=== PATIENT | male | born 1955 | race Caucasian/White ===

== ENCOUNTER 2017-10-12 15:31 | Inpatient (IN) | payer OTHER ==
[2017-10-12] MEDS ORDERED: ASPIRIN 81 MG CHEWABLE TAB PO ONE (15:36)
--- NOTE | 2017-10-12 15:40 | CPEKG ---
Heart Rate: 89 RR Interval: 674 P-R Interval: 188 QRSD Interval: 84 QT Interval: 368 QTC Interval: 448 P Marion: 53 QRS Marion: -2 T Wave Marion: 1 EKG Severity - OTHERWISE NORMAL ECG - EKG Impression: SINUS RHYTHM EKG Impression: MINIMAL ST DEPRESSION, INFERIOR LEADS Electronically Signed By: Lorenzo Benedict 12-Oct-2017 15:51:28
--- NOTE | 2017-10-12 15:42 | EDPHY ---
H & P Time Seen by Provider: 10/12/17 15:42 HPI/ROS: CHIEF COMPLAINT: Chest pain HISTORY OF PRESENT ILLNESS: Patient developed chest pain while he was skiing riding the chair lift at [employer] this morning at 9:30 a.m.. There was left-sided and associated with a little bit of shortness of breath and radiated to his back. Moderate but came and went over the course of the day when he presents to the emergency department is still there. Not particularly exertional but definitely not pleuritic. No recent fall or trauma or cough or hemoptysis. REVIEW OF SYSTEMS: Eye: no change in vision, head epi scleritis 1 week ago but eyes are feeling much better now ENT: no sore throat Cardiac: HPI Pulmonary: no cough or SOB Abdomen: no vomiting, diarrhea, abdominal pain Musculoskeletal: no back pain Skin: no rash Neuro: no headache Constitutional: no fever : no urinary symptoms A comprehensive 10 point review of systems is otherwise negative aside from elements mentioned in the history of present illness. PAST MEDICAL HISTORY: Shoulder surgery, knee surgery, neuropathy Social history: No tobacco smoking. No recent travel except to [place] over [place] but that was by air General Appearance: Alert and conversant, cooperative. Eyes: No scleral icterus. ENT, Mouth: Normal mucous membranes. Respiratory: Normal respiratory effort, breath sounds equal, lungs are clear to auscultation. Cardiovascular: Regular rate and rhythm. Gastrointestinal: Abdomen is soft and non tender. Neurological: Alert, face symmetric, normal motor and sensory in extremities. Skin: Warm and dry, no rashes. Musculoskeletal: No peripheral edema. No calf tenderness. Psychiatric: Not agitated. Emergency Department course/MDM: Cardiac alert called, Dr. Sukumar Prescott is in the patient's room at 3:45 p.m.. Oral aspirin 325 mg. 12-lead EKG interpreted by me; official reading is in trace master. My interpretation is sinus rhythm with inferior ST depression and at least [address] elevation in V2 and possibly V3. Direct cardiac catheterization lab for further evaluation. Critical care time spent by me, Dr. Benedict, exclusively with the care of this patient was 15 minutes, exclusive of PA or ACREAGE REPORTER time and exclusive of separate procedures. The organ system at risk was cardiovascular and I ordered EKG, aspirin, cardiology consultation and cardiac alert to stabilize the patient and prevent worsening of the patient's condition. Smoking Status: Never smoked Constitutional: Initial Vital Signs Temperature (C) 36.6 C 10/12/17 15:37 Heart Rate 93 10/12/17 15:37 Respiratory Rate 18 10/12/17 15:37 Blood Pressure 183/114 H 10/12/17 15:37 O2 Sat (%) 97 10/12/17 15:37 O2 Delivery Mode Room Air Allergies/Adverse Reactions: No Known Allergies Allergy (Unverified 10/12/17 15:39) Home Medications: Medication Instructions Recorded Famotidine 10/12/17 Ibuprofen 10/12/17 LYRICA 10/12/17 Ranitidine HCl 10/12/17 Medical Decision Making - Diagnostics EKG Interpretation: 12-lead EKG interpreted by me; official reading is in trace master. My interpretation is sinus rhythm with anterior ST elevation and inferior ST depression, possible acute anterior myocardial infarction. Imaging Results: Imaging Impressions Chest X-Ray 10/12/17 15:53 Impression: Negative. Differential Diagnosis: Differential diagnosis considered for chest pain including but not limited to myocardial ischemia, aortic dissection, pericarditis, pulmonary embolus, chest wall pain, pleural inflammation and pulmonary infectious causes. - Data Points Laboratory Results: Laboratory Results 10/12/17 15:42 10/12/17 15:42 10/12/17 10/12/17 15:42 15:42 WBC 8.19 10^3/uL 10^3/uL (3.80-9.50) RBC 5.29 10^6/uL 10^6/uL (4.40-6.38) Hgb 17.9 g/dL H g/dL (13.7-17.5) Hct 47.9 % % (40.0-51.0) MCV 90.5 fL fL (81.5-99.8) MCH 33.8 pg pg (27.9-34.1) MCHC 37.4 g/dL H g/dL (32.4-36.7) RDW 11.9 % % (11.5-15.2) Plt Count 212 10^3/uL 10^3/uL (150-400) MPV 10.2 fL fL (8.7-11.7) Neut % (Auto) 86.2 % H % (39.3-74.2) Lymph % (Auto) 7.7 % L % (15.0-45.0) [place] % (Auto) 5.0 % % (4.5-13.0) Eos % (Auto) 0.0 % L % (0.6-7.6) Baso % (Auto) 0.4 % % (0.3-1.7) Nucleat RBC Rel Count 0.0 % % (0.0-0.2) Absolute Neuts (auto) 7.06 10^3/uL H 10^3/uL (1.70-6.50) Absolute Lymphs (auto) 0.63 10^3/uL L 10^3/uL (1.00-3.00) Absolute Monos (auto) 0.41 10^3/uL 10^3/uL (0.30-0.80) Absolute Eos (auto) 0.00 10^3/uL L 10^3/uL (0.03-0.40) Absolute Basos (auto) 0.03 10^3/uL 10^3/uL (0.02-0.10) Absolute Nucleated RBC 0.00 10^3/uL 10^3/uL (0-0.01) Immature Gran % 0.7 % % (0.0-1.1) Immature Gran # 0.06 10^3/uL 10^3/uL (0.00-0.10) Sodium 137 mEq/L mEq/L (135-145) Potassium 4.6 mEq/L mEq/L (3.5-5.2) Chloride 101 mEq/L mEq/L (97-110) Carbon Dioxide 23 mEq/l mEq/l (22-31) Anion Gap 13 mEq/L mEq/L (8-16) BUN 19 mg/dL mg/dL (7-23) Creatinine 0.8 mg/dL mg/dL (0.7-1.3) Estimated GFR > 60 Glucose 117 mg/dL H mg/dL (70-100) Calcium 9.6 mg/dL mg/dL (8.5-10.4) Troponin I 0.464 ng/mL H ng/mL (0.000-0.034) Medications Given: Discontinued Medications Aspirin (Aspirin) 324 mg PO EDNOW ONE Stop: 10/12/17 15:37 Last Admin: 10/12/17 15:36 Dose: 324 mg Prasugrel (Effient) 60 mg PO ONCE ONE Stop: 10/12/17 17:38 Last Admin: 10/12/17 18:30 Dose: Not Given Departure - Departure Disposition: To OP Cath/Surgery Clinical Impression: Acute coronary syndrome Condition: Fair
[2017-10-12] MEDS ORDERED: ASPIRIN 81 MG CHEWABLE TAB ONE ×2 (15:43→15:44)
[2017-10-12] MEDS ORDERED: LIDOCAINE 1% 300 MG/30 ML SDV ONE (15:49)
[2017-10-12] MEDS ORDERED: fentaNYL 100 MCG/2 ML INJ ONE ×2 (15:50→16:32)
[2017-10-12] MEDS ORDERED: MIDAZOLAM 2 MG/2 ML VIAL ONE ×2 (15:50→16:32)
[2017-10-12] MEDS ORDERED: IOPAMIDOL (ISOVUE-370) 150 ML BTL IV ONE ×2 (15:50→17:02)
[2017-10-12] MEDS ORDERED: HEPARIN 10,000 UNIT/10 ML MDV (1,000 UNIT/ML) ONE (16:06)
[2017-10-12] MEDS ORDERED: VERAPAMIL 5 MG/2 ML VIAL ONE (16:06)
[2017-10-12 16:13] LABS: PLATELET COUNT 212 10^3/uL (150-400)
[2017-10-12] MEDS ORDERED: NITROGLYCERIN 1,500 MCG/15 ML VIAL MISC ONE (16:38)
--- NOTE | 2017-10-12 16:45 | GHP ---
[f rep st] HISTORY AND PHYSICAL DATE OF ADMISSION: 10/12/2017 REASON FOR ADMISSION: Probable acute coronary syndrome. HISTORY: The patient is a 62-year-old male with no prior cardiac history. He went skiing today and, early in the course of the day, he developed substernal chest discomfort described as a dull ache with radiation to the left shoulder. There was no associated diaphoresis, nausea, or shortness of breath. The pain waxed and waned throughout the middle of the day. He took an hour off from skiing, but continued to have discomfort. Therefore, he decided to come back to [place] to be checked out. His pain continued off and on throughout the drive home. In the emergency room, his initial ECG demonstrated mild inferolateral ST- segment depression. There was minimal ST-segment elevation in lead V2 only. Initially, a cardiac alert was called. In the emergency room, he is still experiencing mild chest pressure. He is hypertensive and in normal sinus rhythm. PAST CARDIAC HISTORY AND TESTING: He has no history of any prior clinical cardiac episodes. A lipid panel from June of last year demonstrated a total cholesterol of 189 with HDL 50, LDL 104, and triglycerides 189. He is not diabetic. He does not have a diagnosis of hypertension. There is a significant family history, with his father having advanced heart disease and undergoing CABG. His father's heart problems began when he was in his mid 40s. The patient says that he underwent some type of stress test, but that this was several years ago. PAST MEDICAL HISTORY: Notable for peripheral neuropathy and gastroesophageal reflux. He has had colon polyps removed in the past. FAMILY HISTORY: Positive for early CAD in his father. MEDICATIONS: His only prescription medication is Lyrica. He takes over-the- counter famotidine for his acid reflux and occasionally uses Advil. ALLERGIES: Thimerosal from eyedrops. SOCIAL HISTORY: He is . He has adult offspring. He is semi-retired from [employer]. He has never been a smoker. Alcohol consumption is not excessive. REVIEW OF SYSTEMS: Apart from the chest discomfort that prompted this hospital encounter, a 10-point review was negative. PHYSICAL EXAMINATION: VITAL SIGNS: Heart rate in the 90s with sinus rhythm on monitor. Blood pressure 176/119. GENERAL: This is a relatively healthy- appearing middle-aged male in no acute distress. He is alert and oriented x3 and provides a good clinical history. HEAD AND NECK: No scleral icterus. Mucous membranes moist. Carotid pulses 2+, without bruits. There is no JVD. CHEST: Lung troy clear to auscultation. CARDIAC: Regular rate and rhythm with normal S1 and S2. No murmur or gallop. ABDOMEN: Soft, nontender, nondistended, with normal bowel sounds. EXTREMITIES: 2+ pulses. No peripheral edema. An Jefry test on the right wrist was normal at less than 5 seconds. ECG: His ECG demonstrates normal sinus rhythm. He has [address]- segment depression in the inferior leads. No Q-waves or conduction system disturbances. LABORATORY STUDIES: Pending at the time of this dictation. IMPRESSION: This is a 62-year-old male with a risk profile that includes a significant family history of early coronary disease. He presents with a chest pain syndrome and ischemic ST-segment depression on his ECG. His clinical picture is entirely consistent with an acute coronary syndrome. PLAN: Preparations are underway to take the patient to the cardiac lab tech. Further diagnostic and therapeutic decisions await the outcome of that study. He will likely require a hospital stay greater than 2 midnights for care of his cardiac condition. /[id number]/MODL MTDD
[2017-10-12] MEDS ORDERED: METOPROLOL TARTRATE 5 MG/5 ML INJ ONE (16:52)
[2017-10-12] MEDS ORDERED: EPTIFIBATIDE 200 MG/100 ML BOTTLE IV ONE (17:23)
[2017-10-12] MEDS ORDERED: PRASUGREL HCL 10 MG TAB ONE (17:31)
[2017-10-12] MEDS ORDERED: LORazepam 2 MG/ML INJ IVP PRN (17:37)
[2017-10-12] MEDS ORDERED: TEMAZEPAM 15 MG CAP PO PRN ×2 (17:37)
[2017-10-12] MEDS ORDERED: ATROPINE SULFATE 1 MG/10 ML SYR IVP PRN (17:37)
[2017-10-12] MEDS ORDERED: ONDANSETRON 4 MG/2 ML VIAL IVP PRN (17:37)
[2017-10-12] MEDS ORDERED: NITROGLYCERIN 0.4 MG BTL SL PRN (17:37)
[2017-10-12] MEDS ORDERED: HYDROCODONE/APAP 5/325 TAB PO PRN (17:37)
[2017-10-12] MEDS ORDERED: PRASUGREL HCL 10 MG TAB PO ONE (17:37)
[2017-10-12] MEDS ORDERED: ACETAMINOPHEN 325 MG TAB PO PRN (17:37)
[2017-10-12] MEDS ORDERED: NS 1,000 ML IV SCH (17:45)
[2017-10-12] MEDS ORDERED: EPTIFIBATIDE 100 ML IV SCH (18:00)
--- NOTE | 2017-10-12 18:19 | PDDXCAT ---
Diagnostic Cath Note - . Date: 10/12/17 Scrub Technician: Kenyon Indication: other (Non ST elevation [place]) - Procedure Access: right wrist Procedure: left heart catheterization, coronary angiography, left ventriculogram , other (PCI of the LAD) - Materials Left Heart Cath size: 5F Left Heart Cath materials: other (Sightseer, JR4, and Pigtail) - Findings-Left Heart Catheterization LM: Normal. LAD: Mild disease proximally; mid-LAD 100%. LCX: Mid-circumflex with mild irregularities. RCA: Mild irregularities. LVEF: 40% Wall motion: Anterior and apical hypokinesis to akinesis. Complications: None Estimated blood loss: <50ml Closure method: TR Band Assessment: 1) Ischemic cardiomyopathy with moderately reduced left ventricular systolic function. 2) Coronary artery disease as described above. 3) Successful PCI of the LAD with placement of a single drug coated stent. Plan: Based on the patient's clinical presentation and diagnostic angiography, the decision was made to perform PCI of the LAD. The patient received 2500 units of intravenous heparin in addition to the 5000 units that had been given at the beginning of the procedure. A 6 Greek CLS 3.5 guide catheter was advanced to left main. An Intuition guidewire was advanced to the apical portion of the left anterior descending. Predilatation at the site of the total occlusion in the LAD was performed using a 2.5 by 10 mm Emerge balloon. Subsequent angiograms demonstrated episcopal of DURGA II to III flow. There was residual high grade disease in the mid-LAD and significant narrowing of the ostium of the third diagonal branch. Attempts at placing a second guidewire in the third diagonal branch were unsuccessful and resulted in some dissection of the mid left anterior descending. Therefore, a 2.75 x 20 mm Synergy stent was advanced into position and was deployed in the mid-LAD. Subsequent angiograms demonstrated 0% residual stenosis in the LAD and persistence of high grade compromise of the ostium of the third diagonal. A Luge guidewire was successfully negotiated into the diagonal branch. However, a 2.25 x 10 mm Sprinter balloon could not be advanced into the diagonal through "stent fpc". The angiographic appearance of the ostium of the diagonal suggested a significant component of thrombus. Therefore, intravenous Integrilin was started.
[2017-10-12] MEDS: METOPROLOL TARTRATE 25 MG TAB PO SCH (21:28)
--- NOTE | 2017-10-13 05:33 | CPEKG ---
Heart Rate: 69 RR Interval: 870 P-R Interval: 212 QRSD Interval: 86 QT Interval: 384 QTC Interval: 412 P [place]: 57 QRS [place]: 21 T Wave [place]: 37 EKG Severity - ABNORMAL ECG - EKG Impression: SINUS RHYTHM EKG Impression: FIRST DEGREE AV BLOCK EKG Impression: ANTERIOR INFARCT, RECENT EKG Impression: COMPARED WITH 10/12/2017, CHANGES CONSISTENT WITH EVOLVING ANTERIOR AL ARE SEEN. Electronically Signed By: Marietta Soriano 13-Oct-2017 14:22:55
[2017-10-13 05:41] LABS: PLATELET COUNT 183 10^3/uL (150-400)
[2017-10-13 06:13] LABS: CREATINE KINASE 2273 IU/L (0-224)
[2017-10-13] MEDS: PREGABALIN 50 MG CAP PO SCH ×3 (08:01→22:45)
[2017-10-13] MEDS: METOPROLOL TARTRATE 25 MG TAB PO SCH ×2 (08:01→20:02)
[2017-10-13] MEDS: ATORVASTATIN CALCIUM 40 MG TAB PO SCH (08:01)
[2017-10-13] MEDS: LISINOPRIL 5 MG TAB PO SCH (08:01)
[2017-10-13] MEDS: PRASUGREL HCL 10 MG TAB PO SCH (08:01)
[2017-10-13] MEDS: ASPIRIN EC 325 MG TAB PO SCH (08:03)
--- NOTE | 2017-10-13 09:41 | PDCARPN ---
Cardiology Progress Note Chief Complaint: Admitted with chest pain and NSTEMI yesterday Assessment/Plan: Assessment: 1. NSTEMI 2. PCI to the LAD with jailed 3rd diagonal branch 3. ICM with LVEF 40% on ventriculogram 4. Brief runs of NSVT Plan: -transfer to [facility] -continue current medications -Echo results pending from this AM -plan for discharge tomorrow 10/13/17 09:39 Subjective: Mr. Ocampo is feeling well this AM. No chest pain. Vital signs stable. Brief runs of NSVT on telemetry (approx 8 beats) asymptomatic. Echo results from this AM are pending. Right radial artery site with mild ecchymosis and no hematoma. Reviewed/Discussed With: multidisciplinary team Time Spent With Patient: 25 min Objective: Vital Signs (8 Hrs) Pulse Resp BP Pulse Ox 10/13/17 08:01 80 125/86 H 10/13/17 08:00 80 14 125/86 H 97 10/13/17 06:00 76 18 121/76 H 95 10/13/17 04:00 69 17 108/82 H 95 10/13/17 02:00 69 15 119/77 96 Intake/Output (24 Hrs) 10/12/17 10/13/17 10/14/17 05:59 05:59 05:59 Intake Total 1100 Output Total 3400 Balance -2300 Intake: IV Intake (ml) 1100 Output: Urine (ml) 3400 Urinal 3400 Other: Weight 94.34 kg Result Diagrams: 10/13/17 05:15 10/13/17 05:15 Cardiac Labs: Cardiac Lab Results (72 Hrs) 10/13/17 05:15 CK-MB (CK-2) Fraction 181.00 H Troponin I 44.200 H - Physical Exam Ears, Nose, Mouth, Throat: moist mucous membranes Cardiovascular: regular rate and rhythm, no murmurs, no rubs, no gallops Peripheral Pulses: 2+: carotid (R), carotid (L) Respiratory: clear to auscultate bilat Skin: no rashes Musculoskeletal: no muscular tenderness Neurologic: AAOx3, CN II-XII grossly intact ICD10 Worksheet Patient Problems: Problems Problem Status Onset Acute coronary syndrome Acute
--- NOTE | 2017-10-13 12:31 | ECHO ---
[email or web address] [address] [address] Main: [phone] Fax: [email or web address] Echocardiogram Name: RICH ORTEGA MR#: [id number] Study Date: 10/13/2017 Study Time: 08:31 AM Date of : 1955 Age: 62 year(s) Height: 185.4 cm (73 in.) Weight: 94.35 kg (208 lb.) BSA: 2.19 m2 Gender: Male Examination: Echo Indication: anterior MD Image Quality: Adequate Contrast: Requested by: Sukumar Prescott BP: 126 mmHg/76 mmHg Heart Rate: 70 bpm Rhythm: Normal sinus rhythm Indication: anterior MD Procedure Staff Service Establishment Attendant: Savi Radford [facility] Reading Physician: Raffaele Christianson Requesting Provider: Conclusions: Normal size left ventricle. Mild hypokinesis of the mid inferoseptal, mid anteroseptal and apical anterior agustin will low normal ejection fraction. Grade 1 diastolic dysfunction (abnormal relaxation). Normal size right ventricle. Normal RV function. Measurements: Chambers Valvular Assessment AV/MV Valvular Assessment TV/PV Normal Normal Normal Name Value Range Name Value Range Name Value Range Ao Monalisa (MM): 2.9 cm (2.2 cm-3.7 AV Vmax: 1.17 m/s (1 m/s-1.7 PV Vmax: 0.99 m/s (0.6 m/s-0.9 cm) m/s) m/s) IVSd (2D): 1.1 cm (0.6 cm-1.1 AV maxP mmHg ( - ) PV PGmax: 4 mmHg ( - ) cm) LVOT Vmax: 1.01 m/s (0.7 m/s-1.1 LVDd (2D): 4.2 cm (4.2 cm-5.9 m/s) cm) MV E Vmax: 0.55 m/s ( - ) LVDs (2D): 2.9 cm (2.1 cm-4 MV A Vmax: 0.66 m/s ( - ) cm) MV E/A: 0.83 ( - ) LVPWd (2D): 0.9 cm (0.6 cm-1 cm) LVEF (BP): 52 % (>=55 %) RVDd(2D): 2.7 cm (1.9 cm-3.8 cmmm) Continued Measurements: Chambers Valvular Assessment AV/MV Name Value Name Value LADs Lon.3 cm MV DecTime: 232 m/s Patient: RICH ORTEGA Study Date: 10/13/2017 Page 1 of 2 08:31 AM LA Area: 16.3 cm2 MV E/E' Septal: 7.30 LA Volume: 42 ml MV E/E' Lateral: 9.00 LA Volume Index: 19.2 ml/m2 TAPSE: 1.9 cm RA Area: 13.2 cm2 Additional Vessels Name Value Ao Ascendin.3 cm Findings: Left Ventricle: Normal size left ventricle. Mild hypokinesis of the mid inferoseptal, mid anteroseptal and apical anterior agustin will low normal ejection fraction. Borderline concentric LV hypertrophy. Grade 1 diastolic dysfunction (abnormal relaxation). Right Ventricle: Normal size right ventricle. Normal RV function. Left Atrium: The left atrium is normal in size. Right Atrium: The right atrium is normal in size. Mitral Valve: The mitral valve is normal in appearance and function. Trivial mitral valve regurgitation. No mitral stenosis is present. Aortic Valve: The aortic valve is tri-leaflet and functions normally. There is no aortic valve regurgitation. No aortic valve stenosis is present. Tricuspid Valve: The tricuspid valve is normal in appearance and function. There is no significant tricuspid valve regurgitation. Pulmonary artery pressure is not obtained due to inadequate TR jet. Pulmonic Valve: The pulmonic valve is normal in appearance and function. There is no pulmonic regurgitation seen. Aorta: No dilatation of the aorta. Normal size aortic root measuring 2.9 cm. Normal size ascending aorta measuring 3.3 cm. IVC: The IVC is not visualized. Pericardium: No pericardial effusion. (No Signature Object) Patient: RICH ORTEGA Study Date: 10/13/2017 Page 2 of 2 08:31 AM [id number]
[2017-10-13 16:18] LABS: CREATINE KINASE 1282 IU/L (0-224)
[2017-10-13 20:05] VITALS: RESP 16
[2017-10-13 23:13] VITALS: O2SAT 96
[2017-10-14 07:43] VITALS: BP 109/69; PULSE 70; TEMP 98.1
--- NOTE | 2017-10-14 08:04 | CPEKG ---
Heart Rate: 65 RR Interval: 923 P-R Interval: 200 QRSD Interval: 82 QT Interval: 452 QTC Interval: 470 P Burnside: 37 QRS Burnside: 13 T Wave Burnside: 78 EKG Severity - ABNORMAL ECG - EKG Impression: SINUS RHYTHM EKG Impression: PROBABLE ANTEROSEPTAL INFARCT, RECENT EKG Impression: ABNORMAL T, CONSIDER ISCHEMIA, ANT-LAT LEADS EKG Impression: COMPARED WITH 10/13/2017 CHANGES CONSISTENT WITH EVOLVING ANTERIOR RI Electronically Signed By: Marietta Soriano 14-Oct-2017 13:18:43
[2017-10-14] MEDS: PRASUGREL HCL 10 MG TAB PO SCH (08:39)
[2017-10-14] MEDS: ATORVASTATIN CALCIUM 40 MG TAB PO SCH (08:39)
[2017-10-14] MEDS: METOPROLOL TARTRATE 25 MG TAB PO SCH (08:39)
[2017-10-14] MEDS: PREGABALIN 50 MG CAP PO SCH (08:39)
[2017-10-14] MEDS: LISINOPRIL 5 MG TAB PO SCH (08:39)
[2017-10-14] MEDS: ASPIRIN EC 325 MG TAB PO SCH (08:39)
--- NOTE | 2017-10-14 09:29 | PDCARPN ---
Cardiology Progress Note Assessment/Plan: Assessment: 1. NSTEMI 2. PCI to the LAD with jailed 3rd diagonal branch 3. ICM with LVEF 40% on ventriculogram 4. Brief runs of NSVT 5. Right Eye Halo without visiual field loss. Resolved Plan: -Discharge home -Discharge on current medications -Medications reviewed in detail, discussed importance of DAPT -Cardiac Rehab to contact pt next week for initial consultation -[facility] to call for Follow UP with Dr. Prescott 10/14/17 09:29 Subjective: Mr. Ocampo is feeling well today. No episodes of NSVT on Telemetry in last 24 hours. Echo demonstrates mild anterior septal hypokinesis with low normal LVEF of 50-52%. Vital signs are stable. Troponin peaked at 44.2 and is down to 12.7 today. He has been ambulating on the 2W floor. Right radial site with moderate ecchymosis without hematoma. He did have an episode of right eye haloing, without loss of vision or visual field deficit. Resolved spontaneously. Recent hx of episcleritis with plans to see ophthmology in the near future. Reviewed/Discussed With: multidisciplinary team Time Spent With Patient: 25 min Objective: Vital Signs (8 Hrs) Temp Pulse Resp BP Pulse Ox 10/14/17 07:42 36.7 C 70 16 109/69 96 10/14/17 04:00 36.6 C 66 16 99/67 L 96 Intake/Output (24 Hrs) 10/13/17 10/14/17 10/15/17 05:59 05:59 05:59 Intake Total 1100 1700 Output Total 3400 1800 Balance -2300 -100 Intake: Oral (ml) 1700 IV Intake (ml) 1100 Output: Urine (ml) 3400 1800 Urinal 3400 1800 Other: Weight 94.34 kg Intake Quantity Yes Sufficient Number of Voids Urinal 2 Number of Stools Urinal 1 Result Diagrams: 10/13/17 05:15 10/13/17 05:15 Cardiac Labs: Cardiac Lab Results (72 Hrs) 10/14/17 10/13/17 10/13/17 03:51 15:55 05:15 CK-MB (CK-2) Fraction 84.10 H 181.00 H Troponin I 12.700 H 19.500 H 44.200 H ICD10 Worksheet Patient Problems: Problems Problem Status Onset Acute coronary syndrome Acute
--- NOTE | 2017-10-14 10:50 | ASMTCMCOM ---
CM Note CM Note Notes: Pt had stent and will DC today with no needs. Date Signed: 10/14/2017 10:50 AM Electronically Signed By:Nilda Alva LCSW
--- NOTE | 2017-10-14 11:09 | GDS ---
[f rep st] DISCHARGE SUMMARY INDICATION FOR ADMISSION: Non ST-segment elevation myocardial infarction and presentation with chest discomfort. HOSPITAL COURSE: The patient presented to [facility] with ongoing complaints of chest discomfort that began earlier in the day on October 12, 2017 while skiing up in level in [place]. His symptoms progressed throughout the day prompting him to return to [place] and to [facility]. On initial presentation, he was having ongoing pain and ECG changes consistent with ischemia, but not consistent with acute myocardial infarction. He underwent diagnostic left heart catheterization demonstrating 100% occlusion of the mid LAD. He had mild luminal irregularities within the circumflex and right coronary artery. LVEF demonstrated anterior to apical hypokinesis with LVEF of approximately 40%. He underwent successful percutaneous coronary intervention with a 2.75 x 20 mm Synergy drug-eluting stent. He tolerated the procedure well. There was evidence of thrombus in a diagonal branch and patient was treated with intravenous Integrilin. Postoperative course was relatively unremarkable. He did have some brief runs of nonsustained ventricular tachycardia of approximately large duration of 8 beats. These episodes were asymptomatic. He did develop some haloing defect in his right eye on October 13. This was not associated with visual field loss, and symptoms resolved spontaneously. He did have a recent episode of episcleritis and is scheduled to follow up with his glass washer in the near future. During his hospitalization, his troponin peaked at 44.2. On the morning of discharge, his troponin was down to 12.7. He is hemodynamically stable on lisinopril 5 mg daily and metoprolol 25 mg p.o. b.i.d. He is tolerating atorvastatin 40 mg daily well without complaint. He does have some moderate ecchymosis at his right radial artery site with no evidence of hematoma. Radial artery pulse is intact. He has no loss of dexterity or sensation in his right hand. MEDICATIONS: At time of discharge include the followin. Aspirin 325 mg once daily. 2. Effient 10 mg once daily. 3. Metoprolol tartrate 25 mg p.o. b.i.d. 4. Lisinopril 5 mg once daily. 5. Atorvastatin 40 mg daily. 6. Lyrica 50 mg daily. 7. Famotidine 20 mg b.i.d. LAB WORK: At time of discharge, demonstrated hemoglobin of 16.1, hematocrit 44.9, sodium of 142, potassium 4.2, chloride 110, bicarb 23, BUN 13, creatinine 0.8. Troponin currently 12.7 with a peak of 44.2, end terminal proBNP 364. Echocardiogram demonstrated LVEF between 50% and 52% with evidence of anterior septal wall hypokinesis. No other significant abnormalities on the echocardiogram. PLAN: 1. Patient will be discharged home. 2. Patient has been given instructions regarding post right radial artery angiography. 3. Patient has been given detailed instructions regarding the significant importance of each of his new medications. 4. Patient will be contacted by cardiac rehab next week to arrange for initial consultation and I have encouraged him to participate in all 36 sessions of cardiac rehab. 5. Patient will be contacted by [facility]'s office to arrange for followup appointment with Dr. Sukumar Prescott. I have answered all of his questions regarding coronary disease, medications and subsequent followup. 45 minutes spent coordinating care /[id number]/MODL MTDD
--- NOTE | 2017-10-14 12:31 | ASDISCHSUM ---
Discharge Information Plan Status: Medically Cleared to Leave: Discharge Date:10/14/2017 10:44 AM CM D/C Disposition: ADT D/C Disposition:Home, Routine, Self-Care Projected Discharge Date:10/14/2017 10:44 AM Transportation at D/C: Discharge Delay Reason: Follow-Up Date:10/14/2017 10:44 AM Discharge Slot: Final Diagnosis: Placement Information Patient Contact Information Contact Name:JOSE Relationship: Address:[address] [place] [address] City:[place] Alternate Phone: [facility]/Zip Code:[place] [address] Email: Financial Information Financial Class:HMO and PPO Plans Primary Plan Desc:[employer] Primary Plan Number:[id number] Secondary Plan Desc: Secondary Plan Number: Assessment Information [facility] CM Progress Note CM Note CM Note Notes: Pt had stent and will DC today with no needs. Date Signed: 10/14/2017 10:50 AM Electronically Signed By:Nilda Alva LCSW Intervention Information
== END 2017-10-14 10:44 | disposition home or self-care (01) | DRG 247 ==
LOC: F2N 18:09 → F2W 10-13 11:40
PROVIDERS: ADMIT Internal Medicine Interventional Cardiology; ATTEND Internal Medicine Cardiovascular Disease
DX: I21.4 Non-ST elevation (NSTEMI) myocardial infarction (principal); I25.5 Ischemic cardiomyopathy; I25.10 Atherosclerotic heart disease of native coronary artery without angina pectoris; K21.9 Gastro-esophageal reflux disease without esophagitis; H53.19 Other subjective visual disturbances; Z82.49 Family history of ischemic heart disease and other diseases of the circulatory system; H15.109 Unspecified episcleritis, unspecified eye; G62.9 Polyneuropathy, unspecified; Z86.010 Personal history of colon polyps
CPT/HCPCS: 81225-90; C1725; C1769; C1874; C1887; C9606; J1200; J1327; J1644; J2250; J3010; Q9967